=== PATIENT | female | born 1955 | race Caucasian/White ===

== ENCOUNTER 2016-11-25 12:53 | Emergency (ER) | payer MEDICARE ==
[2016-11-25 15:56] LABS: HEMOGLOBIN 12.3 gm/dl (12.3-15.3); RED BLOOD COUNT 4.98 M/UL (4.00-5.10)
[2016-11-25 16:19] LABS: BUN/CREATININE RATIO 20 (0-10)
== END 2016-11-25 19:59 | disposition home or self-care (01) ==
LOC: ER1 12:53
PROVIDERS: Physician Assistant
DX: K80.70 Calculus of gallbladder and bile duct without cholecystitis without obstruction (principal); I10 Essential (primary) hypertension; E78.5 Hyperlipidemia, unspecified; Z79.82 Long term (current) use of aspirin; Z79.899 Other long term (current) drug therapy; Z95.5 Presence of coronary angioplasty implant and graft; Z95.2 Presence of prosthetic heart valve; Z88.0 Allergy status to penicillin
CPT/HCPCS: 36415; 80053; 81001; 82150; 83690; 85025; 96374; 96375; 99284; J2270; J2405; J7050; Q9962

== ENCOUNTER → 2020-05-27 | Outpatient (CLI) | payer MEDICARE ==
[~2020-05-27] MED LIST: ADULT LOW DOSE81 MG PO; ASPIRIN 325MG325 MG PO; COLACE 100MG C100 MG PO; DELSYM30 MG/5 ML PO; LASIX40 MG PO; LEVOCETIRIZINE D5 MG PO; LEXAPRO10 MG PO; METOPROLOL SUCC25 MG PO; MICROZIDE12.5 MG PO; MUCINEX600 MG PO; MUCUS ER600 MG PO; OMEPRAZOLE20 M2 PO; SINGULAIR10 MG PO; SYNTHROID75 MCG PO
[2020-05-27 15:27] LABS: RED BLOOD COUNT 4.65 M/UL (4.00-5.10); WHITE BLOOD COUNT 7.1 K/UL (4.5-11.0)
[2020-05-27 15:55] LABS: BUN/CREATININE RATIO 17 (0-10)
[2020-05-29 11:14] LABS: CHOLESTEROL, TOTAL 140 mg/dL (100-199); HDL SIZE 9.2 nm (>=9.2); HDL-C 41 mg/dL (>39); HDL-P (TOTAL) 32.1 umol/L (>=30.5); LARGE HDL-P 5.8 umol/L (>=4.8); LARGE VLDL-P 15.5 nmol/L (<=2.7); LDL SIZE 19.7 nm (>20.5); LDL SIZE 19.7 nm (>=20.8); LDL-C 62 mg/dL (0-99); LDL-P 722 nmol/L (<1000); LP-IR SCORE 70 (<=45); SMALL LDL-P 526 nmol/L (<=527); TRIGLYCERIDES 230 mg/dL (0-149); VLDL SIZE 58.4 nm (<=46.6)
== END ==
LOC: MAMO 13:29 → EXRD 14:00 → MAMO 15:00
PROVIDERS: Emergency Medicine
DX: Z12.31 Encounter for screening mammogram for malignant neoplasm of breast (principal); M81.8 Other osteoporosis without current pathological fracture; E78.2 Mixed hyperlipidemia; E55.9 Vitamin D deficiency, unspecified; R53.83 Other fatigue; E53.9 Vitamin B deficiency, unspecified; K21.9 Gastro-esophageal reflux disease without esophagitis; I10 Essential (primary) hypertension; M85.88 Other specified disorders of bone density and structure, other site
CPT/HCPCS: 36415; 77063; 77067; 77080; 80053; 80061; 83704; 84550; 85025

== ENCOUNTER → 2020-09-29 | Outpatient (CLI) | payer MEDICARE ==
[2020-09-29 13:03] LABS: HEMOGLOBIN 12.4 gm/dl (12.3-15.3); RED BLOOD COUNT 4.84 M/UL (4.00-5.10); WHITE BLOOD COUNT 8.8 K/UL (4.5-11.0)
[2020-09-29 13:58] LABS: BUN/CREATININE RATIO 21 (0-10)
[2020-10-01 12:15] LABS: CHOLESTEROL, TOTAL 148 mg/dL (100-199); HDL SIZE 8.8 nm (>=9.2); HDL-C 40 mg/dL (>39); HDL-P (TOTAL) 32.9 umol/L (>=30.5); LARGE HDL-P 4.8 umol/L (>=4.8); LARGE VLDL-P 10.3 nmol/L (<=2.7); LDL SIZE 19.7 nm (>20.5); LDL SIZE 19.7 nm (>=20.8); LDL-C 75 mg/dL (0-99); LDL-P 1001 nmol/L (<1000); LP-IR SCORE 73 (<=45); SMALL LDL-P 706 nmol/L (<=527); TRIGLYCERIDES 194 mg/dL (0-149)
== END ==
LOC: LAB 11:43
PROVIDERS: Emergency Medicine
DX: E78.2 Mixed hyperlipidemia (principal); I10 Essential (primary) hypertension; R53.83 Other fatigue; E03.8 Other specified hypothyroidism
CPT/HCPCS: 36415; 80053; 80061; 83704; 84443; 84550; 85025

== ENCOUNTER 2021-03-04 14:39 | Inpatient (IN) | payer MEDICARE ==
[~2021-03-04] VITALS: Ht 157.5 cm; Wt 112.5 kg
[~2021-03-04 14:39] MED LIST changes: -METOPROLOL SUCC25 MG PO; +METOPROLOL TART25 MG PO
[2021-03-04 15:43] LABS: HEMOGLOBIN 11.5 gm/dl (12.3-15.3); RED BLOOD COUNT 4.48 M/UL (4.00-5.10); WHITE BLOOD COUNT 6.6 K/UL (4.5-11.0)
[2021-03-04 16:03] LABS: BUN/CREATININE RATIO 22 (0-10)
[2021-03-04] MEDS ORDERED: METFORMIN HCL500 MG PO (17:43)
[2021-03-04] MEDS ORDERED: CRESTOR5 MG PO (17:43)
[2021-03-04] MEDS ORDERED: POTASSIUM CHLO10 MEQ PO (17:44)
[2021-03-04] MEDS ORDERED: CELECOXIB200 MG PO (17:45)
[2021-03-04] MEDS ORDERED: PROAIR HFA8.5 GM INH (17:46)
[2021-03-04] MEDS ORDERED: LEVOFLOXACIN500 MG PO (17:46)
[2021-03-04] MEDS ORDERED: BENZONATATE100 MG PO (17:47)
[2021-03-04] MEDS ORDERED: PROTONIX 40 MG40 M1 PO (17:47)
[2021-03-04] MEDS ORDERED: AMLODIPINE BESYL5 MG PO (17:48)
[2021-03-05 03:49] LABS: HEMOGLOBIN 11.9 gm/dl (12.3-15.3); RED BLOOD COUNT 4.68 M/UL (4.00-5.10); WHITE BLOOD COUNT 7.8 K/UL (4.5-11.0)
[2021-03-05 04:25] LABS: BUN/CREATININE RATIO 20 (0-10)
[2021-03-05 18:11] LABS: HEMOGLOBIN 11.7 gm/dl (12.3-15.3); RED BLOOD COUNT 4.55 M/UL (4.00-5.10); WHITE BLOOD COUNT 7.9 K/UL (4.5-11.0)
[2021-03-07 03:59] LABS: BUN/CREATININE RATIO 38 (0-10)
[2021-03-08 03:49] LABS: HEMOGLOBIN 11.9 gm/dl (12.3-15.3); RED BLOOD COUNT 4.71 M/UL (4.00-5.10)
[2021-03-08 04:06] LABS: WHITE BLOOD COUNT 14.7 K/UL (4.5-11.0)
[2021-03-08 05:30] LABS: BUN/CREATININE RATIO 48 (0-10)
[2021-03-09] MEDS ORDERED: ELIQUIS 5 MG TAB5 MG PO (16:22)
[2021-03-09] MEDS ORDERED: DOXYCYCLINE HY100 MG PO (16:22)
[2021-03-09] MEDS ORDERED: LEVALBUTER0.63 MG/3 NEB (16:22)
[2021-03-09] MEDS ORDERED: LOPRESSOR 25 MG25 MG PO (16:22)
[2021-03-09] MEDS ORDERED: PREDNISONE 10 M10 MG PO (16:27)
== END 2021-03-09 17:57 | disposition home or self-care (01) | DRG 274 ==
LOC: ER1 14:39 → CDU 17:50 → PROG CARE 22:10 → CDU 22:10 → PROG CARE 23:00
PROVIDERS: Internal Medicine Cardiovascular Disease; Physician Assistant; Physician Assistant Medical; ADMIT Internal Medicine
PROC: 4A023FZ Measurement of Cardiac Rhythm, Percutaneous Approach (ICD-10-PCS; principal; 2021-03-08)
PROC: 4A0234Z Measurement of Cardiac Electrical Activity, Percutaneous Approach (ICD-10-PCS; 2021-03-08)
PROC: 02K83ZZ Map Conduction Mechanism, Percutaneous Approach (ICD-10-PCS; 2021-03-08)
PROC: B24BZZZ Ultrasonography of Heart with Aorta (ICD-10-PCS; 2021-03-08)
DX: I48.92 Unspecified atrial flutter (principal); Z68.42 Body mass index [BMI] 45.0-49.9, adult; I50.32 Chronic diastolic (congestive) heart failure; Z20.822 Contact with and (suspected) exposure to COVID-19; J20.9 Acute bronchitis, unspecified; R00.0 Tachycardia, unspecified; E11.9 Type 2 diabetes mellitus without complications; I11.0 Hypertensive heart disease with heart failure; E03.9 Hypothyroidism, unspecified; I45.10 Unspecified right bundle-branch block; E66.01 Morbid (severe) obesity due to excess calories; E78.5 Hyperlipidemia, unspecified; E78.00 Pure hypercholesterolemia, unspecified; I25.10 Atherosclerotic heart disease of native coronary artery without angina pectoris; I08.1 Rheumatic disorders of both mitral and tricuspid valves; F32.A Depression, unspecified; Z95.5 Presence of coronary angioplasty implant and graft; Z79.01 Long term (current) use of anticoagulants; Z95.2 Presence of prosthetic heart valve; Z90.710 Acquired absence of both cervix and uterus; Z88.0 Allergy status to penicillin; Z98.891 History of uterine scar from previous surgery; Z79.82 Long term (current) use of aspirin; Z80.6 Family history of leukemia; I25.2 Old myocardial infarction; Z88.8 Allergy status to other drugs, medicaments and biological substances
CPT/HCPCS: ECHO; 36415; 80048; 80053; 81001; 82550; 82553; 82962; 83605; 83735; 83880; 84439; 84443; 84484; 85025; 85027; 85379; 85610; 85730; 87040; 93005; 93306; 93312; 93320; 93609; 93620; 93621; 94640; 94664; 94760; 96372; 96374; 96375; 99152; 99153; 99285; C1730; C1733; C1766; G0378; J0456; J0696; J1200; J1644; J1650; J1940; J2250; J2270; J2405; J2920; J2930; J3010; J7040; Q9967; U0002

== ENCOUNTER → 2021-03-26 | Outpatient (CLI) | payer MEDICARE ==
[~2021-03-26] VITALS: Ht 157.5 cm; Wt 116.1 kg
[~2021-03-26] MED LIST changes: +AMLODIPINE BESYL5 MG PO; +BENZONATATE100 MG PO; +CELECOXIB200 MG PO; +CRESTOR5 MG PO; +DOXYCYCLINE HY100 MG PO; +ELIQUIS 5 MG TAB5 MG PO; +LEVALBUTER0.63 MG/3 NEB; +LEVOFLOXACIN500 MG PO; +LOPRESSOR 25 MG25 MG PO; +METFORMIN HCL500 MG PO; +POTASSIUM CHLO10 MEQ PO; +PREDNISONE 10 M10 MG PO; +PROAIR HFA8.5 GM INH; +PROTONIX 40 MG40 M1 PO
== END ==
LOC: EROP 12:55
DX: U07.1 COVID-19 (principal); Z23 Encounter for immunization; I10 Essential (primary) hypertension; I99.9 Unspecified disorder of circulatory system
CPT/HCPCS: M0247; Q0247

== ENCOUNTER → 2021-06-10 | Outpatient (CLI) | payer MEDICARE ==
[2021-06-10 12:04] LABS: RED BLOOD COUNT 4.4 M/UL (4.00-5.10); WHITE BLOOD COUNT 6.1 K/UL (4.5-11.0)
[2021-06-10 12:30] LABS: BUN/CREATININE RATIO 21 (0-10)
[2021-06-12 12:09] LABS: CHOLESTEROL, TOTAL 126 mg/dL (100-199); HDL SIZE 9.1 nm (>=9.2); HDL-C 35 mg/dL (>39); HDL-P (TOTAL) 28.7 umol/L (>=30.5); LARGE HDL-P 5.8 umol/L (>=4.8); LARGE VLDL-P 8.7 nmol/L (<=2.7); LDL SIZE 19.6 nm (>20.5); LDL SIZE 19.6 nm (>=20.8); LDL-C 50 mg/dL (0-99); LDL-P 676 nmol/L (<1000); LP-IR SCORE 61 (<=45); SMALL LDL-P 523 nmol/L (<=527); TRIGLYCERIDES 264 mg/dL (0-149); VLDL SIZE 49.3 nm (<=46.6)
== END ==
LOC: LAB 10:52
PROVIDERS: Emergency Medicine
DX: E78.2 Mixed hyperlipidemia (principal); I10 Essential (primary) hypertension; E53.9 Vitamin B deficiency, unspecified; E11.9 Type 2 diabetes mellitus without complications; Z88.0 Allergy status to penicillin
CPT/HCPCS: 36415; 80053; 80061; 83036; 83704; 84443; 84550; 85025

== ENCOUNTER → 2021-11-12 | Outpatient (CLI) | payer MEDICARE ==
[2021-11-12 12:35] LABS: HEMOGLOBIN 11.2 gm/dl (12.3-15.3); RED BLOOD COUNT 4.7 M/UL (4.00-5.10); WHITE BLOOD COUNT 7.3 K/UL (4.5-11.0)
[2021-11-12 13:02] LABS: BUN/CREATININE RATIO 19 (0-10)
[2021-11-13 09:13] LABS: RHEUMATOID ARTHRITIS FACTOR <10.0 IU/mL (<14.0)
[2021-11-13 10:13] LABS: CREATININE, URINE 145.1 mg/dL (Not Estab.)
[2021-11-14 14:08] LABS: CHOLESTEROL, TOTAL 181 mg/dL (100-199); HDL-C 36 mg/dL (>39); LARGE HDL-P 4.5 umol/L (>=4.8); LARGE VLDL-P 15.9 nmol/L (<=2.7); LDL SIZE 19.6 nm (>20.5); LDL SIZE 19.6 nm (>=20.8); LDL-C 86 mg/dL (0-99); LDL-P 1245 nmol/L (<1000); LP-IR SCORE 70 (<=45); SMALL LDL-P 714 nmol/L (<=527); TRIGLYCERIDES 358 mg/dL (0-149)
== END ==
LOC: LAB 11:34
PROVIDERS: Emergency Medicine
DX: I25.118 Atherosclerotic heart disease of native coronary artery with other forms of angina pectoris (principal); I10 Essential (primary) hypertension; K21.9 Gastro-esophageal reflux disease without esophagitis; E78.2 Mixed hyperlipidemia; M13.851 Other specified arthritis, right hip; E03.8 Other specified hypothyroidism; E11.9 Type 2 diabetes mellitus without complications
CPT/HCPCS: 36415; 80053; 80061; 82043; 82570; 83036; 83704; 84443; 84550; 85025; 85379; 86038; 86140; 86431